=== PATIENT | male | born 1945 | race Caucasian/White ===

== ENCOUNTER 2016-11-06 07:36 | Day surgery (SDC) | payer MEDICARE, BC ==
[~2016-11-06 07:36] MED LIST: Acetaminophen 325 MG Tab PO PRN; Acetaminophen/Codeine 300-30 MG Tab PO PRN; Cataract Ophth Solution EYELF ONE; Moxifloxacin 0.5% Ophth Soln 3 ML Bottle EYELF ONE; Ondansetron 4 MG/2 ML SDV IVPUSH PRN; Phenylephrine 10% Ophth Soln 5 ML Bot EYELF ONE; Phenylephrine 10% Ophth Soln 5 ML Bot EYELF PRN; Povidone-Iodine 5% Sterile Ophth Soln 30 ML Bottle EYELF ONE; Proparacaine 0.5% Ophth Soln 15 ML Bottle EYELF ONE; Sodium Chloride 0.9% 10 ML Syringe FLUSH PRN; Timolol Maleate 0.5% Ophth Soln 5 ML Bottle EYELF ONE
[2016-11-06] MEDS ORDERED: Midazolam 1 MG/ML 2 ML SDV ONE (08:25)
[2016-11-06] MEDS ORDERED: Dexamethasone 4 MG/ML SDV ONE (08:26)
[2016-11-06] MEDS ORDERED: Povidone-Iodine 5% Sterile Ophth Soln 30 ML Bottle EYELF ONE (09:05)
[2016-11-06] MEDS ORDERED: Dexamethasone/Neomycin/Polymyxin B Ophth Oint 3.5 GM Tube EYELF ONE (09:06)
[2016-11-06] MEDS ORDERED: Apraclonidine 0.5% Ophth Soln 5 ML Bot EYELF ONE (09:06)
[2016-11-06] MEDS ORDERED: Tetracaine HCl/PF 0.5% 4 ML Bottle EYELF ONE (09:06)
[2016-11-06] MEDS ORDERED: Diclofenac Sodium 0.1% Ophth Soln 5 ML Bottle EYELF ONE (09:06)
[2016-11-06] MEDS ORDERED: Vancomycin 500 MG SDV EYELF ONE (09:07)
[2016-11-06] MEDS ORDERED: Balanced Salt Solution Ophth Irrig 500 ML Bottle IOCULAR ONE (09:07)
[2016-11-06] MEDS ORDERED: Lidocaine 1% 30 ML SDV ONE (09:07)
[2016-11-06] MEDS ORDERED: Chondroitin Sulfate/Hyaluronate Sodium Ophth Inj 0.75 ML Syringe EYELF ONE (09:07)
--- NOTE | 2016-11-06 10:27 | OR ---
DATE: 11/06/2016 PREOPERATIVE DIAGNOSIS: Cataract, left eye. POSTOPERATIVE DIAGNOSIS: Cataract, left eye. PROCEDURE: Extracapsular cataract extraction with intraocular lens implant, left eye. ANESTHESIA: Topical/local MAC. COMPLICATIONS: None. INDICATION: Mr. Turner was seen in the clinic with complaints of blurred vision. Clinical examination revealed visually significant cataract. I explained options. I offered cataract surgery and I explained risks, including, but not limited to, infection, retinal detachment, loss of vision, need for additional surgery, and risks associated with anesthesia. We discussed implant options. He requested a monofocal implant. He understands that he may need glasses following surgery. He voiced an understanding with respect to risks, options, and limitations and wished to proceed. OPERATIVE DESCRIPTION: After informed consent was obtained and the risks, benefits, and alternatives were explained, the patient was brought to the operative suite and topical anesthesia was administered. The patient was then prepped and draped in the sterile fashion and attention was placed on the left eye. A sterile lid speculum was placed into the left eye to allow operative exposure. A full-thickness paracentesis was made in the temporal portion of the operative eye. Preservative-free lidocaine 0.1 mL was injected into the anterior chamber followed by viscoelastic. A full-thickness corneal incision was then made into the anterior chamber. A bent needle cystotome was used to create a small jamse in the anterior capsule. The capsulorrhexis forceps was then used to create a 360-degree curvilinear capsulorrhexis. The nucleus was then removed using a phacoemulsification handpiece and the remaining cortical material was then removed with irrigation and aspiration handpiece. Following removal of the cortical material, the capsular bag was then inspected and noted to be free of any holes or tears. Viscoelastic was then injected into the capsular bag and the intraocular lens was inserted into the capsular bag. No complications occurred. The viscoelastic material was then removed from both the anterior and posterior chambers and from behind the IOL. The lens and capsular bag were then reinspected. The IOL was well centered and the capsular bag intact. The wound and paracentesis sites were inspected and hydrated with balanced saline solution. Both were found to be self-sealing. The intraocular pressure was assessed digitally and found to be within normal range. A good red reflex was noted at the completion of the procedure. No complications occurred during the operation. At the completion of the procedure, Michelle, Voltaren, and Iopidine drops were placed into the operative eye. A sterile eye shield was placed over the operative eye and the patient was transported to the postoperative recovery area having tolerated the procedure well. Postoperative instructions were given along with a postoperative appointment. The patient was advised to call with any questions or concerns. [facility] /[id number]
[2016-11-06 12:36] VITALS: BP 108/86
[2016-11-06] MEDS ORDERED: Midazolam 1 MG/ML 2 ML SDV IV ONE (13:23)
[2016-11-06] MEDS ORDERED: Dexamethasone 4 MG/ML SDV IV ONE (13:23)
== END 2016-11-06 10:19 | disposition home or self-care (01) ==
LOC: DL.SDS 07:36
PROVIDERS: ATTEND Ophthalmology
DX: H26.9 Unspecified cataract (principal); D51.0 Vitamin B12 deficiency anemia due to intrinsic factor deficiency; I25.810 Atherosclerosis of coronary artery bypass graft(s) without angina pectoris; I10 Essential (primary) hypertension; F41.8 Other specified anxiety disorders; K21.9 Gastro-esophageal reflux disease without esophagitis; E78.5 Hyperlipidemia, unspecified; E87.1 Hypo-osmolality and hyponatremia; I73.9 Peripheral vascular disease, unspecified; G45.9 Transient cerebral ischemic attack, unspecified; Z79.82 Long term (current) use of aspirin; Z79.899 Other long term (current) drug therapy; F17.210 Nicotine dependence, cigarettes, uncomplicated; Z72.0 Tobacco use
CPT/HCPCS: 00142; 66984; A9270; J1100; J2250; J3370; J7050; C1780

== ENCOUNTER 2017-06-11 09:02 | Day surgery (SDC) | payer MEDICARE, BC ==
[~2017-06-11 09:02] MED LIST changes: -Acetaminophen/Codeine 300-30 MG Tab PO PRN; -Cataract Ophth Solution EYELF ONE; +Cataract Ophth Solution EYERT ONE; -Moxifloxacin 0.5% Ophth Soln 3 ML Bottle EYELF ONE; +Moxifloxacin 0.5% Ophth Soln 3 ML Bottle EYERT ONE; -Phenylephrine 10% Ophth Soln 5 ML Bot EYELF ONE; -Phenylephrine 10% Ophth Soln 5 ML Bot EYELF PRN; +Phenylephrine 10% Ophth Soln 5 ML Bot EYERT ONE; +Phenylephrine 10% Ophth Soln 5 ML Bot EYERT PRN; -Povidone-Iodine 5% Sterile Ophth Soln 30 ML Bottle EYELF ONE; +Povidone-Iodine 5% Sterile Ophth Soln 30 ML Bottle EYERT ONE; -Proparacaine 0.5% Ophth Soln 15 ML Bottle EYELF ONE; +Proparacaine 0.5% Ophth Soln 15 ML Bottle EYERT ONE; -Timolol Maleate 0.5% Ophth Soln 5 ML Bottle EYELF ONE; +Timolol Maleate 0.5% Ophth Soln 5 ML Bottle EYERT ONE
[2017-06-11] MEDS ORDERED: Dexamethasone 4 MG/ML SDV IV ONE (09:03)
[2017-06-11] MEDS ORDERED: Sodium Chloride 0.9% 10 ML Syringe IV ONE (09:03)
[2017-06-11] MEDS ORDERED: Tetracaine HCl/PF 0.5% 4 ML Bottle EYERT ONE (10:34)
[2017-06-11] MEDS ORDERED: Diclofenac Sodium 0.1% Ophth Soln 5 ML Bottle EYERT ONE (10:34)
[2017-06-11] MEDS ORDERED: Povidone-Iodine 5% Sterile Ophth Soln 30 ML Bottle EYERT ONE (10:34)
[2017-06-11] MEDS ORDERED: Apraclonidine 0.5% Ophth Soln 5 ML Bot EYERT ONE (10:35)
[2017-06-11] MEDS ORDERED: Dexamethasone/Neomycin/Polymyxin B Ophth Oint 3.5 GM Tube EYERT ONE (10:35)
[2017-06-11] MEDS ORDERED: Chondroitin Sulfate/Hyaluronate Sodium Ophth Inj 0.75 ML Syringe EYERT ONE (10:36)
[2017-06-11] MEDS ORDERED: Vancomycin 500 MG SDV EYERT ONE (10:36)
[2017-06-11] MEDS ORDERED: Lidocaine 1% 30 ML SDV ONE (10:36)
[2017-06-11] MEDS ORDERED: Balanced Salt Solution Ophth Irrig 500 ML Bottle IOCULAR ONE (10:36)
--- NOTE | 2017-06-11 13:02 | OR ---
DATE: 06/11/2017 PREOPERATIVE DIAGNOSIS: Cataract, right eye. POSTOPERATIVE DIAGNOSIS: Cataract, right eye. PROCEDURE: Extracapsular cataract extraction with intraocular lens implant, right eye. ANESTHESIA: Topical/local MAC. COMPLICATIONS: None. INDICATION: Mr. Turner was seen in the clinic. He has complained of a progressive change in vision. His clinical examination reveals visually significant cataract with best spectacle corrected vision of 20/60. Clinical examination reveals mixed nuclear and cortical cataract. Mr. Turner is symptomatic and requested cataract surgery. I explained risks including the potential for infection, retinal detachment, loss of vision, need for additional surgery, amongst others. He is symptomatic and requested surgery to improve vision and function. OPERATIVE DESCRIPTION: After informed consent was obtained and the risks, benefits, and alternatives were explained, the patient was brought to the operative suite and topical anesthesia was administered. The patient was then prepped and draped in the sterile fashion and attention was placed on the right eye. A sterile lid speculum was placed into the right eye to allow operative exposure. A full-thickness paracentesis was made in the temporal portion of the operative eye. Preservative-free lidocaine 0.1 mL was injected into the anterior chamber followed by viscoelastic. A full-thickness corneal incision was then made into the anterior chamber. A bent needle cystotome was used to create a small james in the anterior capsule. The capsulorrhexis forceps were then used to create a 360-degree curvilinear capsulorrhexis. The nucleus was then removed using a phacoemulsification handpiece and the remaining cortical material was then removed with irrigation and aspiration handpiece. Following removal of the cortical material, the capsular bag was then inspected and noted to be free of any holes or tears. Viscoelastic was then injected into the capsular bag and the intraocular lens was inserted into the capsular bag. The viscoelastic material was then removed from both the anterior and posterior chambers and from behind the IOL. The lens and capsular bag were then reinspected. The IOL was well centered and the capsular bag intact. The wound and paracentesis sites were inspected and hydrated with balanced saline solution. Both were found to be self- sealing. The intraocular pressure was assessed digitally and found to be within normal range. A good red reflex was noted at the completion of the procedure. No complications occurred during the operation. At the completion of the procedure, Maxitrol, Voltaren, and Iopidine drops were placed into the operative eye. A sterile eye shield was placed over the operative eye and the patient was transported to the postoperative recovery area having tolerated the procedure well. Postoperative instructions were given along with a postoperative appointment. The patient was advised to call with any questions or concerns. [facility] /[id number]
--- NOTE | 2017-06-11 13:06 | PCM.SN ---
- Free Text/Narrative Note: Post op. Pt discharged home after discharge criteria met. No anesthesia concerns noted.
[2017-06-11 14:00] VITALS: BP 105/44
== END 2017-06-11 11:52 | disposition home or self-care (01) ==
LOC: DL.SDS 09:02
PROVIDERS: ATTEND Ophthalmology
DX: H25.11 Age-related nuclear cataract, right eye (principal); I10 Essential (primary) hypertension; K21.9 Gastro-esophageal reflux disease without esophagitis; E78.5 Hyperlipidemia, unspecified; F32.9 Major depressive disorder, single episode, unspecified; F41.9 Anxiety disorder, unspecified; I73.9 Peripheral vascular disease, unspecified; Z95.1 Presence of aortocoronary bypass graft; F17.210 Nicotine dependence, cigarettes, uncomplicated
CPT/HCPCS: 00142; 66984; A9270; C1780; J1100; J3370; J7050